=== PATIENT | male | born 1950 ===

== ENCOUNTER 2017-12-14 01:40 | Inpatient (IN) | payer MEDICARE, OTHER ==
[2017-12-14] VITALS (9 sets, daily range): BP systolic 91–152; BP diastolic 56–89
[~2017-12-14] VITALS: Ht 177.8 cm; Wt 63.0 kg
[~2017-12-14 01:40] MED LIST: ALPR-429 PO; ASPI-1471 PO; BUDE3CAP4 PO; CALC-18 PO; DUL20 PO; LORA-1456 PO; MAGN71.52 PO; OMEP-125 PO; ONDA4TAB PO; OXYC-823 PO; OXYC-865 PO; PANT40TA65 PO; POTA-23 PO; PROC10TA4 PO; SCOP1PAT16 ASDIRECTED; VANC125C3 PO; [UNRECOGNIZED DRUG - CODE] PO
[2017-12-14] MEDS ORDERED: LIDOCAINE/SOD BICARB 8.4% SYR ID ONE (13:15)
[2017-12-14] MEDS ORDERED: NORMOSOL R SOLN(*) 1000 ML BAG 1,000 ML IV PRN (13:15)
[2017-12-14] MEDS ORDERED: ceFAZolin(*) 2GM/D5W 50ML 50 ML IVPB ONE (13:15)
[2017-12-14] MEDS ORDERED: TRANEXAMIC AC 1000 MG/10ML SDV 1,000 MG in DEXTROSE 5% 50 ML BAG 50 ML IV ONE (13:15)
[2017-12-14] MEDS ORDERED: BACITRACIN 50000 UNIT/VIAL 100,000 UNIT in NS 0.9% 3000 ML IRRIGATION BAG 3,000 ML IR ONE (13:15)
[2017-12-14] MEDS ORDERED: MIDAZOLAM 2 MG/2 ML VIAL IVP PRN (13:15)
[2017-12-14] MEDS ORDERED: FAMOTIDINE 20 MG TAB PO ONE (13:15)
[2017-12-14] MEDS ORDERED: cloNIDine EPIDUR INJ 100MCG/ML 40 MCG, ROPIVACAINE 0.5% 20 ML VIAL 25 ML, EPINEPHrine H... INJ ONE (13:15)
[2017-12-14 13:46] LABS: INR 1.01
[2017-12-14] MEDS ORDERED: DEXAMETHASONE SOD PHOS 10MG/ML ONE (15:21)
[2017-12-14] MEDS ORDERED: LIDOCAINE MPF 1% 5 ML VIAL ONE (15:21)
[2017-12-14] MEDS ORDERED: PROPOFOL EMUL(*) 10MG/ML 20 ML 20 ML ONE (15:21)
[2017-12-14] MEDS ORDERED: ONDANSETRON 4 MG/2 ML VIAL ONE (15:21)
[2017-12-14] MEDS ORDERED: fentaNYL CITR 100 MCG/2 ML AMP ONE ×3 (15:22→19:31)
[2017-12-14] MEDS ORDERED: MIDAZOLAM 2 MG/2 ML VIAL ONE (15:22)
[2017-12-14] MEDS ORDERED: ROCURONIUM BROM 10 MG/ML 10 ML ONE (17:06)
[2017-12-14] MEDS ORDERED: SUGAMMADEX SOD 200 MG/2 ML SDV ONE (18:42)
[2017-12-14] MEDS ORDERED: BISACODYL 10 MG SUPP PR PRN (19:15)
[2017-12-14] MEDS ORDERED: diphenhydrAMINE 50 MG/ML VIAL IVP PRN (19:15)
[2017-12-14] MEDS ORDERED: LR 1000 ML BAG 1000 ML IV PRN (19:15)
[2017-12-14] MEDS ORDERED: ONDANSETRON 4 MG/2 ML VIAL IVP PRN (19:15)
[2017-12-14] MEDS ORDERED: FLUSH 10 ML SYR IVP PRN (19:15)
[2017-12-14] MEDS ORDERED: diphenhydrAMINE 25 MG CAP PO PRN (19:15)
[2017-12-14] MEDS ORDERED: MAGNESIUM CITRATE 300 ML BTL PO PRN (19:15)
[2017-12-14] MEDS ORDERED: HYDROmorphone HCL 2 MG/ML SDV IVP PRN (19:15)
[2017-12-14] MEDS ORDERED: PROMETHAZINE 25 MG/ML 1 ML AMP IVP PRN (19:15)
[2017-12-14] MEDS ORDERED: MAGNESIUM HYDROXIDE* 30ML UDCP PO PRN (19:15)
[2017-12-14] MEDS ORDERED: ZOLPIDEM TARTRATE 5 MG TAB PO PRN (19:15)
[2017-12-14] MEDS ORDERED: KETOROLAC 15 MG/ML VIAL ONE (19:44)
[2017-12-14] MEDS ORDERED: ACETAMINOPHEN(*)1000 MG/100 ML 100 ML IVPB ONE (19:48)
[2017-12-14] MEDS ORDERED: NORMOSOL R SOLN(*) 1000 ML BAG 1,000 ML IV ONE (20:03)
[2017-12-14] MEDS ORDERED: PHENYLEPHRINE 10 MG/1 ML VIAL ONE (20:13)
[2017-12-14] MEDS ORDERED: SUGAMMADEX SOD 500 MG/5 ML SDV ONE (20:46)
[2017-12-14] MEDS: ASPIRIN 325 MG TAB PO SCH (20:52)
--- NOTE | 2017-12-14 21:10 | RADIOLOGY IMAGING REPORT ---
FACILITY: [facility] PATIENT NAME: Demetrius Bedolla : 1950 MR: [id number] V: [id number] EXAM DATE: ORDERING PHYSICIAN: LEIGH TIERNEY TECHNOLOGIST: Location: [facility] Patient: Demetrius Bedolla : 1950 Visit/Account:[id number] Date of Sevice: 12/14/2017 PELVIS History: Left hip arthroplasty. Comparison study: None. Findings: There is diffuse osteopenia. There is been placement of a left hip arthroplasty. Subcutane ous air is related to recent surgery. There is no fracture. There are findings of osteoarthrosis involving the right hip manifesting predom inantly as superomedial joint space narrowing. There are degenerative changes involving the sacroiliac joints bilaterally. IMPRESSION: 1. Status post left total hip arthroplasty. 2. Osteopenia without fracture. 3. Osteoarthrosis of the right hip. Report Dictated By: Brennen Javier MD at 12/14/2017 9:05 PM Report E-Signed By: Brennen Javier MD at 12/14/2017 9:06 PM WSN:[id number]
--- NOTE | 2017-12-14 21:49 | Hospitalist Progress Note ---
Subjective Progress Notes Subjective Patient seen post-op. He has extensive PMHx including gallbladder cancer s/p chemotherapy/radiation, poor functional status, chronic steroid use, left hip fracture, clostridium difficile diarrhea currently on oral vancomycin. He had left hip replacement with Dr. Mendoza today. He reports doing "OK for just having surgery". He only c/o pain in surgical site. Physical Exam Vital Signs Date Time Temp Pulse Resp B/P (MAP) Pulse Ox O2 Delivery O2 Flow Rate FiO2 12/14/17 20:30 98 16 95 12/14/17 13:49 97.5 152/88 (109) Room Air Intake and Output 12/15/17 07:00 Intake Total 2000 ml Output Total 70 ml Balance 1930 ml Intake IV Total 2000 ml Output Estimated Blood Loss 70 ml General Appearance: Alert, Awake Psych: Alert & Oriented X3 Assessment and Plan Problems: (1) S/P hip replacement Status: Acute Assessment & Plan: He appears to have tolerated OR/anesthesia fairly well. He does not have a history of DVT or PE, but does have the history of malignancy. Dr. Mendoza has placed him on aspirin for DVT prophylaxis. (2) Gallbladder cancer Status: Chronic Assessment & Plan: He had chemotherapy and radiation following resection last spring. He has been rather debilitated since with poor mobility and significant weight loss. (3) Clostridium difficile diarrhea Status: Chronic Assessment & Plan: He is currently on oral vancomycin 125mg PO every three days. He reports a loose stool twice a week. (4) Chronic steroid use Status: Chronic Assessment & Plan: Will place him on IV Solu-Cortef for next 24-48hrs. He could resume his oral steroids following this. SALBADOR ARREGUIN MD Dec 14, 2017 21:49
[2017-12-14] MEDS: HYDROCORTISONE 100 MG/2 ML IVP SCH (23:02)
[2017-12-15] VITALS (7 sets, daily range): BP systolic 96–129; BP diastolic 61–82; Ht 177.8 cm; Wt 63.0 kg
[2017-12-15] MEDS: ceFAZolin(*) 1 GM VIAL 1 GM in NS(*) 0.9% 100 ML ADDVANT BAG 100 ML IVPB SCH ×3 (01:18→16:47)
[2017-12-15] MEDS: ALPRAZolam 0.5 MG TAB PO PRN ×2 (01:29→20:50)
[2017-12-15] MEDS: PANTOPRAZOLE SOD 40 MG TABEC PO SCH (05:52)
[2017-12-15 05:56] LABS: PLATELET COUNT, AUTOMATED 187 K/uL (150-450)
[2017-12-15] MEDS: MAGNESIUM CHLORIDE 64 MG TABCR PO SCH ×2 (09:25→20:50)
[2017-12-15] MEDS: CALCIUM CARBONATE/VITAMIN D3 PO SCH ×2 (09:25→16:47)
[2017-12-15] MEDS: DULoxetine HCL 20 MG CAPCR PO SCH ×2 (09:25→20:50)
[2017-12-15] MEDS: MULTIVITAMINS TAB PO SCH (09:25)
[2017-12-15] MEDS: HYDROCORTISONE 100 MG/2 ML IVP SCH ×2 (09:46→20:50)
--- NOTE | 2017-12-15 11:30 | Hospitalist Progress Note ---
Subjective Progress Notes Subjective He has no complaints this morning. Patient Complains of: Cardiovascular: No: Chest Pain Respiratory: No: Shortness of Breath Physical Exam Vital Signs Date Time Temp Pulse Resp B/P (MAP) Pulse Ox O2 Delivery O2 Flow Rate FiO2 12/15/17 11:09 99.4 80 16 129/82 (98) 94 Room Air 12/15/17 08:43 1.0 Intake and Output 12/16/17 07:00 Intake Total 240 ml Balance 240 ml Intake Oral 240 ml General Appearance: Alert, Awake, No Acute Distress, Afebrile Cardiovascular: Regular Rate and Rhythm Respiratory: No Respiratory Distress, Clear to Auscultation Psych: Alert & Oriented X3, Appropriate Mood & Affect Result Diagram: 12/15/17 0541 12/15/17 0541 Assessment and Plan Problems: (1) S/P hip replacement Status: Acute Assessment & Plan: He appears to have tolerated surgery fairly well. He does not have a history of DVT or PE, but does have the history of malignancy. Dr. Mendoza has placed him on aspirin for DVT prophylaxis. (2) Gallbladder cancer Status: Chronic Assessment & Plan: He had chemotherapy and radiation following resection last spring. He has been rather debilitated since with poor mobility and significant weight loss. Dr. Deny Mccarthy has been consulted regarding his risk for a hypercoagulable state and feels Aspirin as DVT prophylaxis is sufficient for this patient. We will hold Megace at this time. (3) Clostridium difficile diarrhea Status: Chronic Assessment & Plan: He is currently on oral vancomycin 125mg PO every three days. He reports a loose stool twice a week. (4) Chronic steroid use Status: Chronic Assessment & Plan: Will place him on IV Solu-Cortef for next 24-48hrs. He could resume his oral steroids following this. Exam Sepsis Risk: No Definite Risk EDVIN HUERTA BINDING PRINTER Dec 15, 2017 11:30
--- NOTE | 2017-12-15 13:56 | OPERATIVE REPORT 1 ---
EVENT DATE: December 14, 2017 SURGEON: Brandan Mendoza MD ANESTHESIOLOGIST: Gideon Solorzano MD ANESTHESIA: General LMA DIRECTOR OF SUSTAINABILITY: Uri Wing PA-C PREOPERATIVE DIAGNOSIS Left hip femoral neck fracture. POSTOPERATIVE DIAGNOSIS Left hip femoral neck fracture. PROCEDURE PERFORMED Left hip hemiarthroplasty for fracture. 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 ESTIMATED BLOOD LOSS 300 mL. DRAINS None. COMPLICATIONS None. TOURNIQUET TIME Not applicable. IMPLANTS USED Meng Avenir fracture stem, which was a 5 standard stem with a 52 mm outer diameter shell, a 28 mm liner and a 28 mm +0 head. SPECIMENS None. INDICATIONS AND HISTORY This patient is a 67-year-old male who got gallbladder cancer and had significant complications associated with surgery associated with this, and also became malnourished. He then was found to have bilateral femoral neck fractures on MRI, which were stress reaction fractures, the left side displaced , and so therefore we talked to him about the implications of this as well as treatment options. He wanted to go ahead with the left hip hemiarthroplasty today, 12/14/2017, and the risks and benefits were discussed with him, and informed consent was obtained at the last clinic visit. He understands he may have to do the other side after this, and that the hemiarthroplasty may wear out and become a total hip arthroplasty, but we would try to save as much cartilage as possible. DESCRIPTION OF PROCEDURE The patient was brought into the operating room. He and the procedure were both verified. He was placed supine on the operative table and induced and intubated by Anesthesia. He was then turned in the lateral decubitus position with the right hip towards the ceiling, and then the right hip was then prepped and draped in the usual fashion and time out was observed, verifying the correct patient and procedure. The standard incision was then made over the posterolateral aspect of the hip itself. We were able to go through the skin and subcutaneous tissue until I got down to the gluteal musculature and also through the IT band. Once I was able to do this, I was then able to incise through the IT band and through the gluteal musculature so that I could get down to the short external rotators. Once I was able to get through the short external rotators, I was then able to do a release of the pyriformis, and then I was able to tag this for later repair. Once I did this, I was able to identify the femoral neck, and then were able to dislocate just the femoral neck. The head stayed within the acetabular component itself, and then I was able to cut through the femoral neck and make a good cut in association with the Avenir stem from [employer]. I then was able to get into the acetabular portion, and then get the rest of the femoral head out. Unfortunately, there was a significant amount of fragmentation associated with this, but we were able to take it out mostly in one piece, and then measure it for further measurement for the acetabulum. I then had to make a small cut within the labrum in order to get the trials in. Once I was able to get the trials into this area, I was then able to locate it to a 52, which looked like a good fit associated with it, and so therefore a 52 was chosen for the final head size. I then turned attention to the femur, where I was able to freshen up the neck cut, and then remove all osteophytes associated with this. I was then able to start broaching with a box cutting osteotome first, and then I utilized the broaches all the way up to a #5 broach handle, and it looked good and had no signs of problems, and we just had to press fit, since the cortices on the rest of the femur looked good. Once I was able to identify and do this, we then were able to do a trial reduction. This had good stability associated with it, had good leg lengths according to clinical exam, and there were no further signs of issues associated with this, and so therefore this was final component chosen. I then was able to put in the final components after removing the old ones, washing with copious amounts of saline, using a pulsatile lavage, and then reduced the final components without any difficulty. Once I did this, I then was able to repair the posterior capsule where I had made the slight cut within this. I was then able to retouch the pyriformis through bony tunnels on the posterior aspect of the femur. This was then followed by irrigation again and then closure of the gluteal musculature with a Stratafix suture. This was then followed by 2-0 Vicryl in the subcutaneous fat and then 2-0 Stratafix in the skin, and then a subcuticular 4-0 running Monocryl, and dressed with Steri- Strips, gauze 4x4's, and a soft dressing. We also used a pain cocktail intraoperatively prior to closure. The patient was then awakened and extubated and transferred to PACU in stable condition. CURTIS
[2017-12-15] MEDS: ASPIRIN 325 MG TAB PO SCH (20:50)
[2017-12-16 00:59] VITALS: BP 127/81
[2017-12-16 05:45] LABS: PLATELET COUNT, AUTOMATED 151 K/uL (150-450)
[2017-12-16 05:46] VITALS: BP 135/81
[2017-12-16] MEDS: PANTOPRAZOLE SOD 40 MG TABEC PO SCH (05:48)
[2017-12-16] MEDS ORDERED: OXYC-865 PO (07:45)
[2017-12-16 07:55] VITALS: BP 110/77
[2017-12-16] MEDS: CALCIUM CARBONATE/VITAMIN D3 PO SCH (08:23)
[2017-12-16] MEDS: MULTIVITAMINS TAB PO SCH (08:23)
[2017-12-16] MEDS: DULoxetine HCL 20 MG CAPCR PO SCH (08:23)
[2017-12-16] MEDS: MAGNESIUM CHLORIDE 64 MG TABCR PO SCH (08:23)
[2017-12-16] MEDS: HYDROCORTISONE 100 MG/2 ML IVP SCH (09:00)
[2017-12-16 10:41] VITALS: BP 108/67
--- NOTE | 2017-12-16 11:50 | Hospitalist Progress Note ---
Subjective Progress Notes Subjective He has no complaints this morning. He states he is ready to go home. Patient Complains of: Cardiovascular: No: Chest Pain Respiratory: No: Shortness of Breath Physical Exam Vital Signs Date Time Temp Pulse Resp B/P (MAP) Pulse Ox O2 Delivery O2 Flow Rate FiO2 12/16/17 10:41 99.2 79 16 108/67 (81) 96 Room Air 12/15/17 08:43 1.0 Intake and Output 12/17/17 07:00 Intake Total 0 ml Balance 0 ml Intake Oral 0 ml # Voids 1 General Appearance: Alert, Awake, No Acute Distress, Afebrile Cardiovascular: Regular Rate and Rhythm Respiratory: No Respiratory Distress, Clear to Auscultation Psych: Alert & Oriented X3, Appropriate Mood & Affect Result Diagram: 12/16/1751912/16/17519 Assessment and Plan Problems: (1) S/P hip replacement Status: Acute Assessment & Plan: He appears to have tolerated surgery fairly well. He does not have a history of DVT or PE, but does have the history of malignancy. Dr. Mendoza has placed him on aspirin for DVT prophylaxis, but per recommendation of Dr. Deny Mccarthy, the patient should start Eliquis 2.5mg twice daily for DVT prophylaxis because the patient is on Megace which could increase his risk of DVT. (2) Gallbladder cancer Status: Chronic Assessment & Plan: He had chemotherapy and radiation following resection last spring. He has been rather debilitated since with poor mobility and significant weight loss. Dr. Deny Mccarthy has been consulted regarding his risk for a hypercoagulable state and feels Eliquis as DVT prophylaxis is better for this patient. He can restart his Megace once he gets home. (3) Clostridium difficile diarrhea Status: Chronic Assessment & Plan: He is currently on oral vancomycin 125mg PO every three days. He reports a loose stool twice a week. (4) Chronic steroid use Status: Chronic Assessment & Plan: He was on IV Solu-Cortef during the admission. He can resume his oral steroids at home. (5) Postoperative anemia Status: Acute Assessment & Plan: He will follow up with Dr. Ng in [place] next week regarding his post operative anemia. He is currently asymptomatic from his anemia. Hgb 8.4 today. Copies to: DOMINICK HENRY MD; PHIL NG MD Exam Sepsis Risk: No Definite Risk EDVIN HUERTA BOOK PUBLISHER Dec 16, 2017 11:50
[2017-12-16] MEDS ORDERED: APIX2.5T PO (13:02)
[2017-12-16] MEDS ORDERED: VANCOMYCIN HCL 125 MG CAPSULE PO SCH (21:00)
== END 2017-12-16 13:45 | disposition home health service (06) | DRG 470 ==
LOC: OR 01:40 → MED 20:47
PROVIDERS: ADMIT Orthopaedic Surgery; ATTEND Orthopaedic Surgery
PROC: 0SRS0JZ Replacement of Left Hip Joint, Femoral Surface with Synthetic Substitute, Open Approach (ICD-10-PCS; principal; 2017-12-14 17:06)
DX: M84.352 Stress fracture, left femur (principal); A04.72 Enterocolitis due to Clostridium difficile, not specified as recurrent; E46 Unspecified protein-calorie malnutrition; Z68.1 Body mass index [BMI] 19.9 or less, adult; K21.9 Gastro-esophageal reflux disease without esophagitis; D64.9 Anemia, unspecified; Z85.89 Personal history of malignant neoplasm of other organs and systems; Z92.21 Personal history of antineoplastic chemotherapy; Z92.3 Personal history of irradiation; Z92.241 Personal history of systemic steroid therapy; Z90.49 Acquired absence of other specified parts of digestive tract
CPT/HCPCS: 36415; 72170; 82040; 82247; 82310; 82374; 82435; 82565; 82947; 84075; 84132; 84155; 84295; 84450; 84460; 84520; 85025; 85610; 86850; 86900; 86901; 88305; 88311; 97162; 97165; C1776; J0131; J0171; J0690; J0735; J1100; J1720; J1885; J2001; J2250; J2370; J2405; J2704; J2795; J3010; J7050; J7060